=== PATIENT | female | born 1995 | race Two or more races ===

== ENCOUNTER 2016-08-24 20:39 | Outpatient (CLI) | payer SELFPAY ==
[~2016-08-24] VITALS: Ht 157.5 cm; Wt 60.0 kg
== END 2016-08-24 21:10 | disposition home or self-care (01) ==
LOC: LDOP 20:39
PROVIDERS: ATTEND Student in an Organized Health Care Education/Training Program
DX: O26.892 Other specified pregnancy related conditions, second trimester (principal); R10.9 Unspecified abdominal pain; Z3A.21 21 weeks gestation of pregnancy
CPT/HCPCS: 59025; 99211; G0463

== ENCOUNTER 2016-11-27 07:44 | Inpatient (IN) | payer OTHER ==
[~2016-11-27] VITALS: Ht 157.5 cm; Wt 70.5 kg
[2016-12-28] MEDS ORDERED: OXYTOCIN 30U/ 0.9% NaCL 500ML 500 ML IV ONE (21:18)
[2016-12-28] MEDS ORDERED: D5%-LACTATED RINGERS 1,000 ML IV SCH (21:18)
[2016-12-28] MEDS ORDERED: FENTANYL PF 100 MCG/2ML IV PRN (21:30)
[2016-12-28] MEDS ORDERED: FENTANYL PF 100 MCG/2ML IVPush PRN (21:30)
[2016-12-28] MEDS ORDERED: ONDANSETRON 2MG/ML, 2ML IVPush PRN (21:30)
[2016-12-28] MEDS ORDERED: MISOPROSTOL 25 MCG TABLET VG PRN (21:30)
[2016-12-28 22:03] LABS: HEMATOCRIT 35.3 % (34.6-47.8); WHITE BLOOD COUNT 9.4 x10^3/uL (3.4-10)
[2016-12-28] MEDS ORDERED: NEWBORN KIT ONE (22:13)
[2016-12-28] MEDS ORDERED: OXYTOCIN 30U/ 0.9% NaCL 500ML 500 ML ONE (22:13)
[2016-12-29] MEDS: LACTATED RINGERS 1,000 ML IV SCH (01:29)
[2016-12-29] MEDS ORDERED: MISOPROSTOL 25 MCG TABLET ONE (03:55)
[2016-12-29] MEDS ORDERED: TERBUTALINE 1 MG/ML, 1ML IVPush PRN (06:00)
[2016-12-29 07:23] VITALS: BP 135/72
[2016-12-29] MEDS ORDERED: OXYTOCIN 30U/ 0.9% NaCL 500ML 500 ML IV PRN (14:33)
[2016-12-29] MEDS ORDERED: FENTANYL PF 100 MCG/2ML ONE (15:22)
[2016-12-29] MEDS ORDERED: FENTANYL/BUPIV./NS/PF 250 ML EPIDCONT ONE (15:23)
[2016-12-29] MEDS ORDERED: BUPIVACAINE 0.25% ONE (15:23)
[2016-12-29] MEDS ORDERED: LIDOCAINE/PF 1.5%-EPI 1:200K, 30ML ONE (15:50)
[2016-12-30] MEDS: LACTATED RINGERS 1,000 ML IV SCH (00:13)
[2016-12-30] MEDS ORDERED: LIDOCAINE 1%, 20ML ONE (02:00)
[2016-12-30] MEDS ORDERED: METOCLOPRAMIDE 5 MG/ML, 2ML IV PRN (02:30)
[2016-12-30] MEDS ORDERED: METHYLERGONOVINE 0.2 MG/ML IM PRN (02:30)
[2016-12-30] MEDS ORDERED: CARBOPROST TROMETHAMINE 250 MCG/ML, 1ML IM PRN (02:30)
[2016-12-30] MEDS ORDERED: GLYCERIN ADULT SUPP PR PRN (02:30)
[2016-12-30] MEDS ORDERED: MEASLES,MUMPS&RUBELLA VACC/PF 0.5 ML SQ PRN (02:30)
[2016-12-30] MEDS ORDERED: MAGNESIUM HYDROXIDE 8%, 30ML UDC PO PRN (02:30)
[2016-12-30] MEDS ORDERED: ACETAMINOPHEN 325 MG TABLET PO PRN ×2 (02:30)
[2016-12-30] MEDS ORDERED: CALCIUM CARBONATE 500 MG TAB.CHEW PO PRN (02:30)
[2016-12-30] MEDS ORDERED: ONDANSETRON 2MG/ML, 2ML IV PRN (02:30)
[2016-12-30] MEDS ORDERED: RHOGAM FROM BLOOD BANK 1 NOTE EA IM/IV ONE (02:30)
[2016-12-30] MEDS ORDERED: MISOPROSTOL 200 MCG TABLET PR PRN (02:30)
[2016-12-30] MEDS ORDERED: BISACODYL 10 MG SUPP PR PRN (02:30)
[2016-12-30] MEDS ORDERED: DIPH,PERTUSS(ACELL),TET VAC/PF NC IM-VACC PRN (02:30)
[2016-12-30] MEDS ORDERED: OXYTOCIN 30U/ 0.9% NaCL 500ML 500 ML ONE (03:31)
[2016-12-30] MEDS: OXYTOCIN 30U/ 0.9% NaCL 500ML 500 ML IV SCH ×3 (03:37→22:16)
[2016-12-30 04:15] VITALS: BP 119/73
[2016-12-30] MEDS: IBUPROFEN 600 MG TABLET PO PRN ×2 (06:08→15:07)
[2016-12-30] MEDS ORDERED: PRENATAL VIT/IRON/FA 1 EACH TABLET ONE (07:42)
[2016-12-30] MEDS: HYDROcodone/APAP 5/325 TABLET PO PRN ×2 (07:43→20:15)
[2016-12-30] MEDS: DOCUSATE 100 MG CAPSULE PO PRN ×2 (07:43→20:15)
[2016-12-30] MEDS: PRENATAL VIT/IRON/FA 1 EACH TABLET PO SCH (07:43)
[2016-12-30 08:00] VITALS: BP 109/71
[2016-12-30 10:38] LABS: HEMATOCRIT 26.8 % (34.6-47.8); HEMOGLOBIN 9.3 g/dL (11.7-16.4); WHITE BLOOD COUNT 13.2 x10^3/uL (3.4-10)
[2016-12-30 12:49] VITALS: BP 116/74
[2016-12-30 16:47] VITALS: BP 122/84
[2016-12-30 20:00] VITALS: BP 121/76
[2016-12-31] MEDS: HYDROcodone/APAP 10/325 MG TABLET PO PRN ×2 (00:35→06:18)
[2016-12-31 07:50] VITALS: BP 129/79
[2016-12-31] MEDS ORDERED: IBUP-1222 PO (08:32)
[2016-12-31] MEDS ORDERED: DOCU-131 PO (08:34)
[2016-12-31] MEDS ORDERED: HYDR-3240 PO (08:59)
[2016-12-31] MEDS ORDERED: FERR325T23 PO (09:00)
[2016-12-31] MEDS: DOCUSATE 100 MG CAPSULE PO PRN (09:54)
[2016-12-31] MEDS: PRENATAL VIT/IRON/FA 1 EACH TABLET PO SCH (09:54)
== END 2016-12-31 15:10 | disposition home or self-care (01) | DRG 775 ==
LOC: LDIP 12-28 21:12 → 2NW 12-30 04:00
PROVIDERS: ADMIT Student in an Organized Health Care Education/Training Program; ATTEND Student in an Organized Health Care Education/Training Program
PROC: 10E0XZZ Delivery of Products of Conception, External Approach (ICD-10-PCS; principal; 2016-12-28)
PROC: 0KQM0ZZ Repair Perineum Muscle, Open Approach (ICD-10-PCS; 2016-12-28)
DX: O24.429 Gestational diabetes mellitus in childbirth, unspecified control (principal); D64.9 Anemia, unspecified; O99.02 Anemia complicating childbirth; O77.0 Labor and delivery complicated by meconium in amniotic fluid; O70.1 Second degree perineal laceration during delivery; Z37.0 Single live birth; Z3A.39 39 weeks gestation of pregnancy
CPT/HCPCS: 36415; 82962; 85025; 86850; 86900; J3010; J3490; J2590; J7120